=== PATIENT | female | born 1985 ===

== ENCOUNTER → 2018-02-03 | Outpatient (CLI) | payer BC ==
[2018-02-05 14:46] LABS: HPV Genotype 16 Not Detected (NOTDET); HPV Genotype 18 Not Detected (NOTDET)
[2018-02-11 08:47] LABS: HPV High Risk Other Not Detected (NOTDET)
== END | disposition home or self-care (01) ==
LOC: LAB SHORT 15:21 → LAB 15:21
PROVIDERS: Obstetrics & Gynecology
DX: Z01.419 Encounter for gynecological examination (general) (routine) without abnormal findings (principal)
CPT/HCPCS: 87624; G0123

== ENCOUNTER → 2018-02-22 | Outpatient (CLI) | payer BC | END | disposition home or self-care (01) | LOC: PLD 10:14 → LAB SHORT 10:14 | DX: D22.39 Melanocytic nevi of other parts of face (principal) | CPT/HCPCS: 88305 ==